=== PATIENT | male | born 1935 | race Caucasian/White ===

== ENCOUNTER 2016-07-12 14:42 | Emergency (ER) | payer MEDICARE, OTHER ==
[~2016-07-12] VITALS: Ht 170.2 cm; Wt 64.0 kg
[~2016-07-12 14:42] MED LIST: ACETAMINOPHEN PO; AMIT10TA6 PO; AMOX-366 PO; BECL8.7A6 IH; BUTA1CAP39 PO; CLOT10TR BUCCAL; DABI150C PO; DILT120T PO; GABA-502 PO; ISOMETHEPTENE PO; QVAR; SALM50DI IH; Spiriva
[2016-07-12 14:53] VITALS: BP 122/78; PULSE 94; RESP 24; O2SAT 92
[2016-07-12 15:17] LABS: BASOPHILS % (AUTO) 0.4 % (0-3); EOSINOPHILS % (AUTO) 1.7 % (0-5); MONOCYTES % (AUTO) 12.3 % (4-12); Mean Corpuscular Hemoglobin 30.7 pg (27.0-35.0); Mean Corpuscular Volume 89.7 fL (81-100); NEUTROPHILS % (AUTO) 74.8 % (40-74); Platelet Count 317 bil/L (150-400)
--- NOTE | 2016-07-12 15:25 | DRSVH ---
PROCEDURE: X-RAY CHEST ONE VIEW, PORTABLE ([id number]) INDICATIONS: sob/hx lung ca TECHNIQUE: One view of the chest was acquired. COMPARISON: [facility], CT, CT ANGIO CHEST PE, 06/24/2015, 0:02. [facility], CR, XR CHEST 1VW (PORTABLE), 06/23/2015, 19:46. FINDINGS: Surgical changes and devices: None. Lungs and pleura: No pneumothorax. Severe air space opacification within the left lower lung. Small to moderate left pleural effusion. Mediastinum: Mediastinal contours appear normal. Heart size is normal. Bones and chest wall: No suspicious bony lesions. Overlying soft tissues appear unremarkable. IMPRESSION: 1. Left mid/lower lung pleural-parenchymal opacity, consistent with recurrent carcinoma/post obstruct camilo phenomenon and/or pneumonia. Dictated by: Geovani Rosado M.D. on 07/12/2016 at 15:21 Approved by: Geovani Rosado M.D. on 07/12/2016 at 15:23
--- NOTE | 2016-07-12 15:39 | ED.REPORT ---
HPI-Abd Pain F 2 and Over Date of Service July 12, 2016 ED Provider: Dr. Bertin James The patient is a 80 year old male w/ a hx of HTNand COPD who presents to the ED via EMS due to SOB and progressive hypoxia onset 2 weeks ago. Pt describes that his breathing has been declining for the past 2 weeks since he caught a severe cold. C/o associated yellow-productive cough, lower-extremity edema, and lower back pain. Pt was diagnosed with left lung cancer last January. He is being treated at [facility] by Dr. Ryan Bermeo. Pt has been on oxygen for 3 weeks. Yesterday, he increased his oxygen from 2L to 4L as his SOB is getting increasingly worse. He has been sitting up to sleep due to difficulty breathing when laying flat. Any kind of physical exertion exacerbates his symptoms. He had a left sided pleural effusion drained earlier in the month. Pt denies fever, nausea, vomiting, and chest pain. Pt was seen at [facility] for right lung pneumonia one year ago. Pt's current up-to-date medication list: Advair 250/50 twice daily Spiriva 18 mcg once daily Gabapentin 300 mg 5 times daily Folic acid 1mg 1x/day Vit. B1 100 mg 1x/day Diltiazem 120 mg 1x/day Butalb acetamin - caff as needed Isomethepterne/apap as needed Clotrimazole 10 mg Terrance as needed Lisinipril 10 mg .... temporary hold Nursing Notes Stated Complaint: SOB Chief Complaint: Respiratory Distress Nursing Notes Reviewed: Yes Allergies: Coded Allergies: No Known Allergies (Unverified , 06/23/15) Scheduled Amitriptyline (Amitriptyline) 10 Mg Tablet 10 MG PO HS Amoxicillin/Clav K 875-125 mg (Augmentin 875-125 mg) 1 Each Tablet 1 TABLET PO BID Clotrimazole (Clotrimazole) 10 Mg Terrance 10 MG BUCCAL 5XD Dabigatran Etexilate Mesylate (Pradaxa) 150 Mg Capsule 150 MG PO BID Diltiazem ER (Cardizem LA) 120 Mg Tab.er.24h 120 MG PO DAILY Gabapentin (Gabapentin) 300 Mg Capsule 300 MG PO QID Scheduled PRN ([isometheptene/APAP ]) 2 CAPSULE PO PRN Headache Butalbital/Acetamin/Caff 50-300-40 mg (Fioricet 50-300-40 mg) 1 Each Capsule 1 CAPSULE PO Q4H PRN PRN For Pain Miscellaneous Medications ([Spiriva]) ([Qvar]) Beclomethasone Dipropionate (Qvar) 8.7 Gm Aer.w.adap 8.7 GM IH Salmeterol Xinafoate (Serevent Diskus) 50 Mcg/Puff Inhaler 1,400 MCG IH General Time Seen by MD: 15:38 Chief Complaint Other (shortness of breath) Hx Obtained from: Patient Arrived by: Ambulance Sudden in Onset?: Yes Onset Occurred: More than a week ago... (2 weeks) Symptom Duration: Since onset Location: : Back Quality: Painful Radiation: : Does not radiate Severity: Current: Mild Recent Healthcare: Recent doctor visit Similar Sx Previous: Yes Past Medical History Past Medical History HTN COPD left lung cancer Past Surgical History back surgery Smoking History Former Smoker Ambulatory Status Ambulatory Status: Independent Review of Systems Constitutional: Denies: Fever Respiratory: Reports: Prod cough, yellow, Shortness of breath, Denies: Wheezing Cardiovascular: Denies: Chest pain GI: Denies: Nausea, Vomiting Musculoskeletal: Reports: Back pain, Extremity swelling (lower extremity edema ) Complete sys rev & neg: except as marked. Physical Exam Initial Vital Signs Vital Signs (First) Date Time Temp Pulse Resp B/P Pulse Ox O2 Delivery O2 Flow Rate FiO2 07/12/16 14:53 36.7 94 24 122/78 92 Nasal Cannula 4 Initial VS: Reviewed Head / Eyes: Atraumatic, Normocephalic ENT: Mucous membranes moist, Conjunctiva normal Neck: Supple, Non-tender, Full range of motion Skin: Warm, Dry Neurologic: Alert, Oriented Psychiatric: Mood/affect normal, Behavior normal, Normal thought content General / Constitutional: Awake, Alert, Cooperative Respiratory / Chest: No wheezing poor air movement throughout no dullness to percussion breath sounds decreased more on left then right Cardiovascular: Heart rate NL, Regular rhythm, No gallop, No murmurs, No rubs Abdomen: Atraumatic, Soft, BS normoactive Back: Atraumatic Upper Extremity / MS: Atraumatic, Full range of motion, No deformity Lower Extremity / Pelvis / MS: Atraumatic, Full range of motion, No deformity Interpretation & Diagnostics Interpretation & Diagnostics: ANGIOGRAPHY CT IMPRESSION: 1. No pulmonary embolus. 2. Multiloculated moderate to large left pleural effusion. 3. Cavitary left upper lobe nodule, with surrounding airspace opacity. Differential considerations include malignancy and infection. 4. Severe emphysema. 5. Pathologic mediastinal and left hilar adenopathy, consistent with reactive lymph node enlargement versus reactive adenopathy secondary to infection. Dictated by: Geovani Rosado M.D. on 07/12/2016 at 17:24 Approved by: Geovani Rosado M.D. on 07/12/2016 at 17:29 Lab Results Interpretation Result Diagram: 07/12/16 1410 07/12/16 1410 Test 07/12/16 14:10 07/12/16 18:00 White Blood Count 9.2th/mm3 (3.8-10.1) Red Blood Count 5.15mil/mm3 (4.40-5.80) Hemoglobin 15.8g/dL (13.8-17.2) Hematocrit 46.2% (41.0-50.0) Mean Corpuscular Volume 89.7fL (81-100) Mean Corpuscular Hemoglobin 30.7pg (27.0-35.0) Mean Corpuscular Hemoglobin Concent 34.2% (32.0-37.0) Red Cell Distribution Width 13.7% (12.3-15.4) Platelet Count 317bil/L (150-400) Neutrophils (%) (Auto) 74.8% (40-74) Lymphocytes (%) (Auto) 10.5% (14-46) Monocytes (%) (Auto) 12.3% (4-12) Eosinophils (%) (Auto) 1.7% (0-5) Basophils (%) (Auto) 0.4% (0-3) Sodium Level 132mEq/L (134-144) Potassium Level 4.5mEq/L (3.5-5.2) Chloride Level 92mEq/L (97-108) Carbon Dioxide Level 26mmol/L (18-29) Blood Urea Nitrogen 16mg/dL (8-27) Creatinine 0.65mg/dL (0.76-1.27) Estimat Glomerular Filtration Rate 126mL/min (>59) Glucose Level 123mg/dL (60-99) Calcium Level 9.0mg/dL (8.5-10.1) Total Bilirubin 0.4mg/dL (0.0-1.2) Aspartate Amino Transf (AST/SGOT) 20U/L (0-50) Alanine Aminotransferase (ALT/SGPT) 20U/L (0-44) Alkaline Phosphatase 161U/L (25-160) Troponin T < 0.010ug/L (0.0-0.011) Total Protein 6.1g/dL (6.4-8.4) Albumin 3.2g/dL (3.4-5.0) Hold Urine Received (Received) Lab Results Interpretation: EK Sinus rhythm (rate 81) Abnormal R-wave progression C/W 06/27/15 X-Ray Chest Interpretation Chest Xray Interpretation: IMPRESSION: 1. Left mid/lower lung pleural-parenchymal opacity, consistent with recurrent carcinoma/post obstructive phenomenon and/or pneumonia. Dictated by: Geovani Rosado M.D. on 07/12/2016 at 15:21 Approved by: Geovani Rosado M.D. on 07/12/2016 at 15:23 View: Portable Interpretation / Wet Read by: Interpret - Radiologist Procedures Tube Thoracostomy Tube Thoracostomy: guided ultrasound placement Time: 22:15 Tube Thoracostomy by: ED physician Indication: Pneumothorax Consent / Timeout / Setup: Informed consent provided, Consent from patient, Oxygen administered, serologist applied, Hand hygiene observed, Stand sterile technique, Patient sitting up Tube Size: 6 inch Post-Procedure / Complications: Antibiotic oint applied, Occlusive dressing , No complications, Pneumothorax resolved, Condition improved, Tolerated procedure well, Patient stable Re-Eval/Medical Decision Re-Evaluation/Progress #1: Time of Eval: 17:46 Re-Evaluation/Progress Note: Pt rechecked. No pulmonary embolism noted in CT scan. Plan to consult with [facility]. Re-Evaluation/Progress #2: Time of Eval: 22:15 Re-Evaluation/Progress Note: Thoracentesis performed. 2.1L drained. Pt tolerated procedure well. Plan for chest x-ray. Re-Evaluation/Progress #3: Time of Eval: 23:28 Patient Status: Condition improved, Moderate relief Re-Evaluation/Progress Note: Pt rechecked. He is feeling much better. Breath sounds are improved. Pt informed of plan of treatment. He understands and agrees with plan. F/U and RTER warnings given. All questions addressed. Consultation : Call Returned at: 18:58 Note: Case discussed with Dr. Cordell Reza from [facility]. Plan to drain as much fluid at [facility] today. Counseled Regarding: Diagnosis, Lab results, Need for follow-up, When/why to return to ED Discharge & Departure Impression: Primary Impression: Pleural effusion on left Disposition: Home Discharge Condition All VS Reviewed: Yes Condition: Stable Additional Instructions: Emergency department evaluation tonight included interview, examination, labs and x-ray and CT scan of chest discussion with on-call oncologist for your primary oncologist. We took 2 L of fluid out of the left side of you chest. This should help you feel better for the next few days. Please contact your oncologist on Thursday for follow-up. Return to emergency department for shortness of breath, chest pain, fevers shaking chills or other new or worrisome symptoms. Thanks for trusting us with your care. Referrals: Leeann Mcdermott MD (PCP) Scribe Attestation Portion of this note were transcribed by Demi Tyson. I, , personally performed the history, physical exam, and medical decision-making: I reviewed and confirmed the accuracy for the information in the transcribed note. Signed by: julienne Mccall, 07/12/16 2200 Leeann Mcdermott MD, Donald L MD July 12, 2016 15:39 Demi Tyson July 12, 2016 15:49 Bertin James MD July 12, 2016 15:39 Demi Tyson July 12, 2016 15:49
--- NOTE | 2016-07-12 17:30 | DRSVH ---
PROCEDURE: CT ANGIO CHEST PULMONARY EMBOLISM ([id number]) INDICATIONS: dyspnea, lung cancer TECHNIQUE: After the administration of intravenous contrast, 2 mm thick sections acquired from the pulmonary api heron to the posterior costophrenic angles. 3-dimensional maximum intensity projection (MIP) coronal a nd sagittal reformats were then acquired through the thorax. For radiation dose reduction, the follo wing was used: automated exposure control, adjustment of mA and/or kV according to patient size. COMPARISON: [facility], CT, CT ANGIO CHEST PE, 06/24/2015, 0:02. FINDINGS: Image quality: Excellent. Pulmonary arteries: Pulmonary arteries are normal in size, and demonstrate no intraluminal filling d efects to suggest central pulmonary embolism. Lungs and pleura: There is moderate debris within the left mainstem bronchus, causing moderate narrow ing of the left mainstem bronchus. There is a moderate to large multiloculated left pleural effusion. No pneumothorax. Severe emphysema with apical predominance. Compressive atelectasis within the left lung. There is a cavitary mass within the left upper lobe laterally, measuring 37 mm, with moderate s urrounding airspace opacity. Mediastinum: Heart size is normal, without pericardial effusion. There is calcification of the kelsey nary vasculature. New, 15 mm short axis AP window adenopathy is present. Needle, 11 mm short axis lef t hilar adenopathy is present. 16 mm short axis left hilar adenopathy is present. Thoracic aorta is n ormal in caliber and enhancement. Esophagus is normal in caliber, without hiatal hernia. Bones and chest wall: No suspicious bony lesions. Ribs and thoracic spine appear intact throughout. Thyroid gland is within normal limits. No axillary or supraclavicular adenopathy. Abdomen: Visualized upper abdominal solid organs appear normal in the early arterial phase of enhanc ement. IMPRESSION: 1. No pulmonary embolus. 2. Multiloculated moderate to large left pleural effusion. 3. Cavitary left upper lobe nodule, with surrounding airspace opacity. Differential considerations in clude malignancy and infection. 4. Severe emphysema. 5. Pathologic mediastinal and left hilar adenopathy, consistent with reactive lymph node enlargement versus reactive adenopathy secondary to infection. Dictated by: Geovani Rosado M.D. on 07/12/2016 at 17:24 Approved by: Geovani Rosado M.D. on 07/12/2016 at 17:29
[2016-07-12 18:06] VITALS: BP 135/82; PULSE 96; RESP 20; O2SAT 94
[2016-07-12 19:35] VITALS: BP 128/72; PULSE 86; RESP 16; O2SAT 94
--- NOTE | 2016-07-13 09:55 | DRSVH ---
PROCEDURE: X-RAY CHEST ONE VIEW, PORTABLE ([id number]) INDICATIONS: post thoracentesis TECHNIQUE: One view of the chest was acquired. COMPARISON: [facility], CR, XR CHEST 1VW (PORTABLE), 07/12/2016, 15:01. [facility] CT from 07/12/2016. FINDINGS: Surgical changes and devices: None. Lungs and pleura: Emphysema. Left-sided pleural effusion is much decreased. No pneumothorax. Irregula r left apical masslike scarring. Right lung is clear. Mediastinum: Mediastinal contours appear normal. Heart size is normal. Bones and chest wall: No suspicious bony lesions. Overlying soft tissues appear unremarkable. IMPRESSION: 1. Significantly improved left-sided pleural effusion with no pneumothorax. 2. Left apical irregular masslike scarring. No change in differential considerations of malignancy or infection. 3. Emphysema. Dictated by: Jd Arroyo M.D. on 07/13/2016 at 9:51 Approved by: Jd Arroyo M.D. on 07/13/2016 at 9:53
== END 2016-07-12 23:51 | disposition home or self-care (01) ==
LOC: SED 14:42
DX: J90 Pleural effusion, not elsewhere classified (principal); I10 Essential (primary) hypertension; J44.9 Chronic obstructive pulmonary disease, unspecified; C34.92 Malignant neoplasm of unspecified part of left bronchus or lung; Z87.891 Personal history of nicotine dependence; Z99.81 Dependence on supplemental oxygen
CPT/HCPCS: 32551; 36415; 71010; 71275; 80053; 84484; 85025; 87040; 93005; 99285; Q9967

== ENCOUNTER 2016-07-15 14:43 | Emergency (ER) | payer MEDICARE, OTHER ==
[~2016-07-15] VITALS: Ht 172.7 cm; Wt 56.4 kg
[2016-07-15 14:46] VITALS: BP 95/67; PULSE 102; RESP 24; O2SAT 93
--- NOTE | 2016-07-15 15:26 | ED.REPORT ---
HPI-Dyspnea / Wheezing Date of Service July 15, 2016 ED Provider: Dr. James 80 y/o male with a hx of COPD and left lung cancer presents to the ED complaining of SOB and left lateral chest pain, onset today. He states he presented to the ED 3 days ago when they performed a Thoracentesis and drained 2.1L of fluid. He believes the fluid is building up again. The pt is on 4L nasal cannula. Nursing Notes Stated Complaint: CHEST PAIN, SHORTNESS OF BREATH Chief Complaint: Respiratory Distress Nursing Notes Reviewed: Yes Allergies: Coded Allergies: No Known Allergies (Unverified , 06/23/15) Scheduled Amitriptyline (Amitriptyline) 10 Mg Tablet 10 MG PO HS Beclomethasone Dipropionate (Qvar) 8.7 Gm Aer.w.adap 1 PUFF IH BID 40 MCG Folic Acid (Folic Acid) 0.4 Mg Tablet 0.4 MG PO QAM Gabapentin (Gabapentin) 300 Mg Capsule 300 MG PO 5XD Lisinopril / HCTZ 10-12.5 mg (Lisinopril / HCTZ 10-12.5 mg) 1 Each Tablet 1 EACH PO TWICE WEEKLY Pembrolizumab (Keytruda) 100 Mg/4 Ml (25 Mg/Ml) Vial 200 MG IV [id number] Salmeterol Xinafoate (Serevent Diskus) 50 Mcg/Puff Inhaler 1 PUFF IH DAILY Thiamine Mononitrate (Vitamin B-1) 100 Mg Tablet 100 MG PO QAM Tiotropium [place] (Spiriva) 18 Mcg Cap.w.dev 1 PUFF IH DAILY Scheduled PRN ([isometheptene/APAP ]) 2 CAPSULE PO PRN Headache COMPOUNDED Albuterol Neb Soln (Albuterol Neb Soln) 2.5 Mg/3 Ml Vial.neb 2.5 MG INHALATION Q4H PRN PRN For Shortness of Breath Butalbital/Acetamin/Caff 50-300-40 mg (Fioricet 50-300-40 mg) 1 Each Capsule 1 CAPSULE PO Q4H PRN PRN For Pain Clotrimazole (Clotrimazole) 10 Mg Terrance 10 MG BUCCAL 5XD PRN PRN THRUSH General Time Seen by MD: 15:26 Chief Complaint Shortness of breath Hx Obtained From: Patient Arrived By: Walk-in Sudden in Onset?: Yes Onset Occurred: 1 - 4 hours ago Symptom Duration: Since onset Location: : Chest left Quality: Painful Radiation: : Does not radiate Severity: Current: Mild Severity: Maximum: Mild Recent Healthcare: Recent doctor visit Similar Sx Previous: Yes Past Medical History Past Medical History Denies blood clots. Reports: COPD, Cancer (Lung) Past Surgical History Non contributory Smoking History Former Smoker Social History Alcohol Use: Denies alcohol use Drug Use: Denies drug use Other Social History: Local resident Ambulatory Status Independent Review of Systems Respiratory: Reports: Shortness of breath Complete sys rev & neg: except as marked. Physical Exam Initial Vital Signs Vital Signs (First) Date Time Temp Pulse Resp B/P Pulse Ox O2 Delivery O2 Flow Rate FiO2 07/15/16 14:46 35.9 102 24 95/67 93 Nasal Cannula 4 Initial VS: Reviewed Head / Eyes: Atraumatic, Normocephalic Extremities: Vascular intact, Neuro intact, No swelling, No tenderness Skin: Warm, Dry, No cyanosis Neurologic: Alert, Oriented, Nonfocal General/Constitutional: Awake, Alert, Cooperative Thoracostomy site from 3 days ago okay. Neck: Atraumatic, Full range of motion Respiratory / Chest: Atraumatic, No wheezing Poor air movement bilaterally, significantly decreased at left base. Cardiovascular: Heart rate NL, Regular rhythm, Heart sounds NL, No gallop, No murmurs, No rubs Back: Atraumatic, Full range of motion Interpretation & Diagnostics Lab Results Interpretation Result Diagram: 07/15/16 1605 07/15/16 1605 Test 07/15/16 16:05 White Blood Count 10.0th/mm3 (3.8-10.1) Red Blood Count 4.99mil/mm3 (4.40-5.80) Hemoglobin 15.6g/dL (13.8-17.2) Hematocrit 44.9% (41.0-50.0) Mean Corpuscular Volume 90.0fL (81-100) Mean Corpuscular Hemoglobin 31.3pg (27.0-35.0) Mean Corpuscular Hemoglobin Concent 34.7% (32.0-37.0) Red Cell Distribution Width 13.7% (12.3-15.4) Platelet Count 280bil/L (150-400) Neutrophils (%) (Auto) 77.3% (40-74) Lymphocytes (%) (Auto) 7.6% (14-46) Monocytes (%) (Auto) 12.5% (4-12) Eosinophils (%) (Auto) 1.9% (0-5) Basophils (%) (Auto) 0.2% (0-3) Sodium Level 129mEq/L (134-144) Potassium Level 4.6mEq/L (3.5-5.2) Chloride Level 90mEq/L (97-108) Carbon Dioxide Level 24mmol/L (18-29) Blood Urea Nitrogen 15mg/dL (8-27) Creatinine 0.56mg/dL (0.76-1.27) Estimat Glomerular Filtration Rate 150mL/min (>59) Glucose Level 106mg/dL (60-99) Calcium Level 8.6mg/dL (8.5-10.1) Total Bilirubin 0.4mg/dL (0.0-1.2) Aspartate Amino Transf (AST/SGOT) 21U/L (0-50) Alanine Aminotransferase (ALT/SGPT) 18U/L (0-44) Alkaline Phosphatase 158U/L (25-160) Troponin T < 0.010ug/L (0.0-0.011) Total Protein 5.9g/dL (6.4-8.4) Albumin 2.7g/dL (3.4-5.0) ECG Interpretation ECG Interpretation: Normal sinus rhythm. 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 Unchanged from previous ECG on 07/12/16. Time: 16:02 Interpreted by: ED physician X-Ray Chest Interpretation Chest Xray Interpretation: IMPRESSION: 1. Large left effusion has significantly improved with reference to the most recent comparison CT from 07/12/16. Persistent mild to moderate residual left effusion. No pneumothorax. 2. At the lateral left apex there is lung and pleural stranding/thickening that conceivably could represent evidence of malignancy but more likely is inflammatory in origin given the degree of adjacent pleural disease in that region only 3 days ago. Followup attention to that area by plain film is recommended. 3. Severe COPD. Lung base atelectasis bilaterally. Dictated by: Keo Naranjo M.D. on 07/15/2016 at 15:24 Approved by: Keo Naranjo M.D. on 07/15/2016 at 15:29 View: Portable, AP & lat Interpretation / Wet Read by: Interpret - Radiologist Re-Eval/Medical Decision Med Decision/Clinical Course 80-year-old male with dyspnea due to a rapidly reoccurring left pleural effusion and underlying lung cancer. He is not presently experiencing respiratory distress. The plan is for him to get a Pleurex catheter, I believe we have arranged for him to get one tomorrow so I will defer thoracentesis tonight. Source of Hx: Old records Re-Evaluation/Progress #1: Time of Eval: 15:30 Re-Evaluation/Progress Note: Discussed the possible need for transfer. The pt understands and agrees with the plan. All questions addressed. Re-Evaluation/Progress #2: Time of Eval: 17:55 Patient Status: Condition improved Re-Evaluation/Progress Note: Rechecked pt. Discussed lab results, imaging results, diagnosis and plan to discharge to return for the procedure tomorrow. Pt understands and agrees with plan. F/U instructions and RTER warning given. All questions addressed. Consultation #1: Referral / Consult Name: Ryan Bermeo MD Call Returned at: 16:02 Cager Operator: Agrees with eval, Agrees with plan Note: Dr. Bermeo, [facility], recommends thoracentesis. Consultation #2: Call Returned at: 16:25 Cager Operator: Will see patient, Referred to other consult Note: A staff member at [facility] requested order from an outpatient doctor and stated the procedure can be performed tomorrow. Consultation #3: Referral / Consult Name: Ryan Bermeo MD Call Returned at: 16:29 Cager Operator: Agrees with plan Note: Dr. Bermeo agrees to send the order to [facility] for tomorrow. Consultation #4: Call Returned at: 16:40 Cager Operator: Will see patient, Agrees with plan Note: [facility] informed to expect order from Dr. Bermeo. Agree with the plan to perform procedure tomorrow. Counseled Regarding: Diagnosis, Lab results, Need for follow-up, When/why to return to ED Discharge & Departure Impression: Primary Impression: Pleural effusion on left Disposition: Home Discharge Condition All VS Reviewed: Yes Additional Instructions: ED evaluation today included interview, exam and labs and chest x-ray. Case was discussed with your oncologist. The plan at this point is to have a Pleurx catheter placed with interventional radiology here at [facility] tomorrow. Do not eat or drink anything except for sips with medication and do not take ibuprofen. Tylenol is okay. You will be called in the morning with a time for the procedure. Call the emergency department at [phone] if you have not heard by 10 AM. Return to the emergency department if having increasing shortness of breath, chest pain or fevers. Continue other previous home medications. Referrals: Leeann Mcdermott MD (PCP) Scribe Attestation Portions of this note were transcribed by Vinay Graham. I, , personally performed the history, physical exam and medical decision-making;I reviewed and confirmed the accuracy of the information in the transcribed note. Signed by Veronica Fuller. 07/15/16 [id number] copies to: Leeann Mcdermott MD, Donald L MD July 15, 2016 15:26 Vinay Graham July 15, 2016 15:42
--- NOTE | 2016-07-15 15:30 | DRSVH ---
PROCEDURE: X-RAY CHEST, TWO VIEWS ([id number]) INDICATIONS: dyspnea TECHNIQUE: 2 views of the chest were acquired. COMPARISON: [facility], CT, CT ANGIO CHEST PE, 06/24/2015, 0:02. [facility], CT, CT ANGIO CHEST PE, 07/12/2016, 16:56. [facility], CR, XR CHEST 1VW (PORTABLE), 2016, 22:33. [facility], CR, XR CHEST 1VW (PORTABLE), 07/12/2016, 15:01. FINDINGS: Surgical changes and devices: None. Lungs and pleura: No right-sided pleural effusions or pneumothorax bilaterally is found and the left pleural effusion previously documented by CT scanning 07/12/16 has appreciably diminished in size, no w small to moderate in overall quantity. Lungs are abnormal with severe COPD and linear stranding at the left upper lobe and to a lesser degree the right lung base in the left lower lobe. Basilar atel ectasis is the likely cause bilaterally, but at the left apex a pleural base mass is considered possi ble but potentially simply inflammatory given the absence of any lesions suggestive of pleural or adal g parenchymal malignancy in that area 06/24/15. Mediastinum: Mediastinal contours are normal. Heart size is normal. Bones and chest wall: No suspicious bony abnormalities. Soft tissues appear unremarkable. IMPRESSION: 1. Large left effusion has significantly improved with reference to the most recent comparison CT fr om 07/12/16. Persistent mild to moderate residual left effusion. No pneumothorax. 2. At the lateral left apex there is lung and pleural stranding/thickening that conceivably could re present evidence of malignancy but more likely is inflammatory in origin given the degree of adjacent pleural disease in that region only 3 days ago. Followup attention to that area by plain film is re commended. 3. Severe COPD. Lung base atelectasis bilaterally. Dictated by: Keo Naranjo M.D. on 07/15/2016 at 15:24 Approved by: Keo Naranjo M.D. on 07/15/2016 at 15:29
[2016-07-15 16:23] LABS: BASOPHILS % (AUTO) 0.2 % (0-3); EOSINOPHILS % (AUTO) 1.9 % (0-5); MONOCYTES % (AUTO) 12.5 % (4-12); Mean Corpuscular Hemoglobin 31.3 pg (27.0-35.0); NEUTROPHILS % (AUTO) 77.3 % (40-74); Platelet Count 280 bil/L (150-400)
[2016-07-15 16:57] LABS: TROPONIN T < 0.010 ug/L (0.0-0.011)
[2016-07-15] MEDS ORDERED: TIOT18CA3 IH (17:09)
[2016-07-15] MEDS ORDERED: FOLI0.4T2 PO (17:10)
[2016-07-15] MEDS ORDERED: THIA100T64 PO (17:10)
[2016-07-15] MEDS ORDERED: LISI1TAB7 PO (17:11)
[2016-07-15] MEDS ORDERED: PEMB100V IV (17:11)
[2016-07-15] MEDS ORDERED: ALBU2.5V4 INHALATION (17:11)
[2016-07-15 18:37] VITALS: BP 116/71; PULSE 94; RESP 24; O2SAT 91
== END 2016-07-15 18:38 | disposition home or self-care (01) ==
LOC: SED 14:43
DX: J90 Pleural effusion, not elsewhere classified (principal); J44.9 Chronic obstructive pulmonary disease, unspecified; C34.92 Malignant neoplasm of unspecified part of left bronchus or lung; Z99.81 Dependence on supplemental oxygen; Z87.891 Personal history of nicotine dependence

== ENCOUNTER 2016-07-16 12:36 | Day surgery (SDC) | payer MEDICARE, OTHER ==
[~2016-07-16] VITALS: Ht 172.7 cm; Wt 57.3 kg
[~2016-07-16 12:36] MED LIST changes: +ALBU2.5V4 INHALATION; -AMOX-366 PO; -DABI150C PO; -DILT120T PO; +FOLI0.4T2 PO; +LISI1TAB7 PO; +PEMB100V IV; -QVAR; -Spiriva; +THIA100T64 PO; +TIOT18CA3 IH
[2016-07-16 13:14] VITALS: BP 110/82; PULSE 99; RESP 26; O2SAT 92
[2016-07-16] MEDS ORDERED: Heparin 10,000 Unit/1,000 mL NS Premix IV ONE (13:46)
--- NOTE | 2016-07-16 13:47 | NUR ---
ILAN Patient admitted to [facility] at 1245 for Pleurx drain placement in record label intern. at bedside. Patient denies pain but is SOB and on 3L home O2. HL placed. Labs available from ED visit 07/15/16. History and medication reviewed. Consent obtained pr . Pre-procedure teaching done and questions answered.
[2016-07-16] MEDS ORDERED: fentaNYL-PF 50 mCg/mL 2 mL Inj ONE (14:41)
[2016-07-16 15:15] VITALS: BP 119/80; PULSE 94; RESP 26; O2SAT 92
[2016-07-16 15:30] VITALS: BP 120/72; PULSE 92; RESP 26; O2SAT 94
--- NOTE | 2016-07-16 15:36 | DRSVH ---
PROCEDURE: 1. Pleurx catheter placement for left pleural effusion 2. Conscious sedation times 30 minutes. 3. Sonographic guidance for left pleural access. INDICATIONS: Lung carcinoma, recurrent left pleural effusion. COMPARISON: None. TECHNIQUE: Informed, written consent from the patient was obtained prior to the procedure. Patient wa s brought to the angiography suite, and conscious sedation was administered intravenously by jail staff, while continuous cardiorespiratory monitoring was performed. Maximal sterile barrier t echnique, hand hygiene, skin preparation, and sterile ultrasound technique was followed. A mask, ster ile gown, sterile gloves, a large sterile sheet, hand hygiene, and 2% chlorhexidine or iodine was uti lized for skin antisepsis. The left anterior chest wall prepped and draped sterilely, and the skin an d subcutaneous tissues overlying the left pleural space were infused with lidocaine. The left pleural space was accessed with an 18 gauge angiocath, through which an 035 wire was advanced. The subcutane ous tissues of the left anterior chest wall were infused with lidocaine, through which a Pleurx patricia ter was advanced. The pleurotomy access site was sequentially dilated over the 035 wire, followed by advancement of the pleurx catheter into the left pleural space. The catheter was then fastened to the skin surface. One liters of fluid were removed. FLUOROSCOPY TIME: 0.1 minutes FINDINGS: Sonographic imaging demonstrates a moderate left pleural effusion. Following Pleurx cathet er placement, the catheter is within the left pleural space. IMPRESSION: Pleurx catheter for treatment of left pleural effusion. Dictated by: Geovani Rosado M.D. on 07/16/2016 at 15:28 Approved by: Geovani Rosado M.D. on 07/16/2016 at 15:34
[2016-07-16 15:45] VITALS: BP 119/78; PULSE 90; RESP 18; O2SAT 94
[2016-07-16 16:00] VITALS: BP 118/78; PULSE 93; RESP 18; O2SAT 94
[2016-07-16 16:30] VITALS: BP 115/77; PULSE 90; RESP 18; O2SAT 94
== END 2016-07-16 23:59 | disposition home or self-care (01) ==
LOC: SPI 12:36
PROVIDERS: ATTEND Radiology Diagnostic Radiology
DX: J90 Pleural effusion, not elsewhere classified (principal); C34.92 Malignant neoplasm of unspecified part of left bronchus or lung
CPT/HCPCS: 32550; 75989; 99152; C1729; C1894; J0690; J1644; J2250; J3010

== ENCOUNTER 2016-07-17 21:54 | Emergency (ER) | payer MEDICARE, OTHER ==
[~2016-07-17] VITALS: Ht 172.7 cm; Wt 57.3 kg
[2016-07-17 22:01] VITALS: BP 127/86; PULSE 111; RESP 23; O2SAT 95
--- NOTE | 2016-07-17 22:13 | ED.REPORT ---
HPI-Chest Pain 40 and Over Date of Service Jul 17, 2016 ED Provider: Dr. Murcia 80 y/o male with a hx of reoccurring left pleural effusion, underlying lung cancer and COPD presents to the ED via EMS complaining of pain at pleural tube site after drainage today. The pt states the site has been sore since the new catheter insertion yesterday. Denies fever, increased SOB and significant weight change.The EMS administered 100mcg Fentanyl. Nursing Notes Stated Complaint: CHEST PAIN Chief Complaint: General Complaint Nursing Notes Reviewed: Yes Allergies: Coded Allergies: No Known Allergies (Unverified , 06/23/15) Scheduled Amitriptyline (Amitriptyline) 10 Mg Tablet 10 MG PO HS Beclomethasone Dipropionate (Qvar) 8.7 Gm Aer.w.adap 1 PUFF IH BID 40 MCG Folic Acid (Folic Acid) 0.4 Mg Tablet 0.4 MG PO QAM Gabapentin (Gabapentin) 300 Mg Capsule 300 MG PO 5XD Lisinopril / HCTZ 10-12.5 mg (Lisinopril / HCTZ 10-12.5 mg) 1 Each Tablet 1 EACH PO TWICE WEEKLY Pembrolizumab (Keytruda) 100 Mg/4 Ml (25 Mg/Ml) Vial 200 MG IV [id number] Salmeterol Xinafoate (Serevent Diskus) 50 Mcg/Puff Inhaler 1 PUFF IH DAILY Thiamine Mononitrate (Vitamin B-1) 100 Mg Tablet 100 MG PO QAM Tiotropium Hasty (Spiriva) 18 Mcg Cap.w.dev 1 PUFF IH DAILY Scheduled PRN ([isometheptene/APAP ]) 2 CAPSULE PO PRN Headache COMPOUNDED Albuterol Neb Soln (Albuterol Neb Soln) 2.5 Mg/3 Ml Vial.neb 2.5 MG INHALATION Q4H PRN PRN For Shortness of Breath Butalbital/Acetamin/Caff 50-300-40 mg (Fioricet 50-300-40 mg) 1 Each Capsule 1 CAPSULE PO Q4H PRN PRN For Pain Clotrimazole (Clotrimazole) 10 Mg Terrance 10 MG BUCCAL 5XD PRN PRN THRUSH General Time Seen by MD: 22:12 Chief Complaint Other (Pain at chest tube site) Hx Obtained From: Patient Arrived By: Ambulance Sudden in Onset?: Yes Onset Occurred: 1 - 4 hours ago Symptom Duration: Since onset Location: : Chest left (Pleural tube site) Quality: Painful Radiation: : Does not radiate Severity: Current: Moderate Severity: Maximum: Moderate Recent Healthcare: Recent doctor visit Similar Sx Previous: Yes Past Medical History Past Medical History Denies blood clots. Reports: COPD, Cancer (Lung) Past Surgical History Non contributory Smoking History Former Smoker Social History Alcohol Use: Denies alcohol use Drug Use: Denies drug use Other Social History: Local resident Ambulatory Status Independent Review of Systems Reports: pain at left pleural tube site. Denies: change in weight Constitutional: Denies: Fever Respiratory: Denies: Shortness of breath Complete sys rev & neg: except as marked. Physical Exam Initial Vital Signs Vital Signs (First) Date Time Temp Pulse Resp B/P Pulse Ox O2 Delivery O2 Flow Rate FiO2 07/17/16 22:01 36.6 111 23 127/86 95 Nasal Cannula 2 Initial VS: Reviewed, Vital signs normal Neck: Full range of motion Extremities: Vascular intact, Neuro intact, No swelling, No tenderness Skin: Warm, Dry, No cyanosis Neurologic: Alert, Oriented, Nonfocal General/Constitutional: Awake, Alert, Cooperative Distress / Hydration: Positive: Dehydration mild (Lips and mouth dry) Appearance / Presentation: Positive: Cachectic Respiratory / Chest: Atraumatic, No respiratory distress Decreased breath sounds at left base. There is no respiratory variation of the fluid in the tube. Drain site normal. Cardiovascular: Heart rate NL, Regular rhythm, Heart sounds NL No edema ENT: Atraumatic Mouth: Positive: Mucous membranes dry Interpretation & Diagnostics Lab Results Interpretation Result Diagram: 07/17/16225407/17/162254 Test 07/17/16 22:55 White Blood Count 11.7th/mm3 (3.8-10.1) Red Blood Count 5.13mil/mm3 (4.40-5.80) Hemoglobin 15.8g/dL (13.8-17.2) Hematocrit 46.5% (41.0-50.0) Mean Corpuscular Volume 90.6fL (81-100) Mean Corpuscular Hemoglobin 30.8pg (27.0-35.0) Mean Corpuscular Hemoglobin Concent 34.0% (32.0-37.0) Red Cell Distribution Width 13.7% (12.3-15.4) Platelet Count 328bil/L (150-400) Neutrophils (%) (Auto) 76.2% (40-74) Lymphocytes (%) (Auto) 6.9% (14-46) Monocytes (%) (Auto) 13.4% (4-12) Eosinophils (%) (Auto) 2.8% (0-5) Basophils (%) (Auto) 0.4% (0-3) Sodium Level 132mEq/L (134-144) Potassium Level 4.5mEq/L (3.5-5.2) Chloride Level 92mEq/L (97-108) Carbon Dioxide Level 25mmol/L (18-29) Blood Urea Nitrogen 19mg/dL (8-27) Creatinine 0.68mg/dL (0.76-1.27) Estimat Glomerular Filtration Rate 120mL/min (>59) Glucose Level 115mg/dL (60-99) Calcium Level 8.7mg/dL (8.5-10.1) Total Bilirubin 0.4mg/dL (0.0-1.2) Aspartate Amino Transf (AST/SGOT) 19U/L (0-50) Alanine Aminotransferase (ALT/SGPT) 17U/L (0-44) Alkaline Phosphatase 154U/L (25-160) Troponin T 0.010ug/L (0.0-0.011) Pro-B-Type Natriuretic Peptide 73.76pg/mL (0-486) Total Protein 5.6g/dL (6.4-8.4) Albumin 2.5g/dL (3.4-5.0) Lab values outside NL range: no clinical significance. Lab Results Interpretation: Very mild elevation of white blood count ECG Interpretation ECG Interpretation: Sinus Tachycardia. Rate 109. 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 No acute ST or T wave changes Time: 22:39 Interpreted by: ED physician X-Ray Chest Interpretation Chest Xray Interpretation: Result: Normal View: Portable Interpretation / Wet Read by: Wet read ED physician Re-Eval/Medical Decision Med Decision/Clinical Course 80-year-old male with pain at the insertion site of his pleural drainage tube. His chest x-ray is unremarkable with much reduced pleural effusion. Labs are unremarkable. There does not appear to be physical exam or laboratory evidence of infection. He has been discharged home with pain medication and instructions to follow-up with his primary doctor. Return to emergency room for significant worsening. Source of Hx: Old records Time of Eval: 23:37 Re-Evaluation/Progress Note: Rechecked pt. Discussed imaging results. All questions addressed. Time of Eval: 01:22 Patient Status: Condition improved Re-Evaluation/Progress Note: Discussed lab results and diagnosis. Informed the pt of the plan to discharge. Pt understands and agrees with plan. F/U instructions and RTER warning given. All questions addressed. Counseled Regarding: Diagnosis, Lab results, Need for follow-up, When/why to return to ED Discharge & Departure Primary Impression: Pleural effusion on left Disposition: Home Discharge Condition All VS Reviewed: Yes Patient Instructions: Pleural Effusion (ED) Additional Instructions: The pleural effusion is much reduced. There is no evidence of infection. I do not have an explanation for the increased pain at the insertion site, but it does not appear to be serious. Hydrocodone/APAP 5/325 (Vicodin), 1 or 2 tablets every 4-6 hours as needed for severe pain,, #10 dispensed. Contact your provider in the morning to talk to them about the continued pain at the site. Call me at [phone] between the hours of 9 PM and 6 AM for the next couple of nights if you have any questions or concerns. Referrals: Leeann Mcdermott MD (PCP) Scribe Attestation Portions of this note were transcribed by Vinay Graham. I, , personally performed the history, physical exam and medical decision-making;I reviewed and confirmed the accuracy of the information in the transcribed note. Signed by Veronica Fuller. 07/18/16 02:15 copies to: Leeann Mcdermott MD, Howard L MD Jul 17, 2016 22:13 Vinay Graham Jul 17, 2016 22:24
[2016-07-17 23:06] LABS: BASOPHILS % (AUTO) 0.4 % (0-3); EOSINOPHILS % (AUTO) 2.8 % (0-5); MONOCYTES % (AUTO) 13.4 % (4-12); Mean Corpuscular Hemoglobin 30.8 pg (27.0-35.0); Mean Corpuscular Volume 90.6 fL (81-100); NEUTROPHILS % (AUTO) 76.2 % (40-74); Platelet Count 328 bil/L (150-400)
[2016-07-17 23:32] LABS: TROPONIN T 0.01 ug/L (0.0-0.011)
[2016-07-17 23:39] VITALS: BP 127/88; PULSE 115; RESP 23; O2SAT 95
[2016-07-18] MEDS ORDERED: fentaNYL-PF 50 mCg/mL 2 mL Inj IVPUSH ONE (00:25)
[2016-07-18 00:48] VITALS: BP 112/72; PULSE 105; RESP 21; O2SAT 95
[2016-07-18] MEDS ORDERED: 0.9% Sodium Chloride 1,000 ML IV ONE (01:30)
[2016-07-18] MEDS ORDERED: _HYDROcodone/APAP 5-325 mg Tablet PO PRN (01:30)
[2016-07-18 02:46] VITALS: BP 124/91; PULSE 102; RESP 23; O2SAT 96
--- NOTE | 2016-07-18 08:26 | DRSVH ---
PROCEDURE: X-RAY CHEST ONE VIEW, PORTABLE ([id number]) INDICATIONS: increased pain, SHORTNESS OF BREATH s/p chest tube placement TECHNIQUE: One view of the chest was acquired. COMPARISON: [facility], CT, CT ANGIO CHEST PE, 07/12/2016, 16:56. [facility] , CR, XR CHEST 2VW, 07/15/2016, 15:08. [facility], CR, XR CHEST 1VW (PORTABLE), 07/12/2016 , 22:33. FINDINGS: Surgical changes and devices: There is a pleural catheter in the left base. Lungs and pleura: There is a small residual left pleural effusion decreased from the prior study wit h medial left basilar opacities consistent with compressive atelectasis or consolidation. Mild blunt ing of the right costophrenic angle is also noted suggesting a small pleural effusion. There is manas pheral consolidation in the left upper lobe which appear slightly increased. Hyperinflation of the l ungs is again noted compatible with COPD. Mediastinum: Mediastinal contours appear unchanged. Heart size is normal. Bones and chest wall: No suspicious bony lesions. Overlying soft tissues appear unremarkable. IMPRESSION: 1. New left pleural catheter with a decreased but residual small left pleural effusion. 2. Peripheral consolidation in the left upper lobe appears slightly decreased Dictated by: Collins Lora M.D. on 07/18/2016 at 8:19 Approved by: Collins Lora M.D. on 07/18/2016 at 8:24
== END 2016-07-18 02:35 | disposition home or self-care (01) ==
LOC: EDUNIT# 21:54 → EDBD 21:54 → SED 21:54
DX: J90 Pleural effusion, not elsewhere classified (principal); J44.9 Chronic obstructive pulmonary disease, unspecified; C34.90 Malignant neoplasm of unspecified part of unspecified bronchus or lung; Z87.891 Personal history of nicotine dependence
CPT/HCPCS: 36415; 71010; 80053; 83880; 84484; 85025; 93005; 96361; 96374; 99285; J3010; J7030

== ENCOUNTER 2016-09-23 00:04 | Day surgery (SDC) | payer MEDICARE, OTHER ==
[~2016-09-23] VITALS: Ht 172.7 cm; Wt 57.1 kg
[~2016-09-23 00:04] MED LIST changes: +DILT120C86 PO; +LISI10TA PO; -LISI1TAB7 PO; +TAMS0.4C98 PO
--- NOTE | 2016-09-23 10:24 | DRSVH ---
PROCEDURE: X-RAY CHEST ONE VIEW, PORTABLE ([id number]) INDICATIONS: PLEURAL EFFUSION TECHNIQUE: One view of the chest was acquired. COMPARISON: [facility], CR, XR CHEST 1VW (PORTABLE), 07/17/2016, 22:28. FINDINGS: Surgical changes and devices: Pleural drainage tube is noted overlying the left lower quadrant. Lungs and pleura: There is minimal appearance of opacity within the left base. Focus of opacity chelle ins present in the left upper lobe, unchanged. Hyperexpansion is present consistent with COPD. No vis ualized pneumothorax. Mediastinum: Mediastinal contours appear normal. Heart size is normal. Bones and chest wall: No suspicious bony lesions. Overlying soft tissues appear unremarkable. IMPRESSION: Interval placement of pleural drainage tube as above. Dictated by: Kaitlin Delatorre M.D. on 09/23/2016 at 9:17 Approved by: Kaitlin Delatorre M.D. on 09/23/2016 at 9:22
[2016-09-23 10:40] VITALS: BP 128/80; PULSE 69; RESP 16; O2SAT 96
--- NOTE | 2016-09-23 11:15 | NUR ---
Pleurex cath removed at bedside by Dr. Richelle Patel, removed without difficulty. Vaseline gauze and telfa placed. Denies any discomfort. Patient cautioned to call immediately for SOB, Chest pain, and seek medical care immediately if this occurs at/after discharge.
[2016-09-23 11:20] VITALS: BP 134/83; PULSE 75; RESP 16; O2SAT 94
[2016-09-23 11:46] VITALS: BP 111/68; PULSE 76; RESP 16; O2SAT 94
[2016-09-23 12:00] VITALS: BP 123/79; PULSE 72; RESP 16; O2SAT 95
[2016-09-23 12:15] VITALS: BP 124/79; PULSE 68; RESP 18; O2SAT 95
--- NOTE | 2016-09-23 12:32 | NUR ---
Patient has had no complaints of shortness of breath or other complaints since pleurx catheter removed.Dr Patel called, CXR post is read by her and per her patient may be discharged.
[2016-09-23 12:35] VITALS: BP 116/73; PULSE 67; RESP 18; O2SAT 95
--- NOTE | 2016-09-23 12:36 | NUR ---
Discharge instructions reviewed and patient discharged ambulatory.
--- NOTE | 2016-09-23 12:42 | DRSVH ---
PROCEDURE: X-RAY CHEST ONE VIEW, PORTABLE ([id number]) INDICATIONS: POST PROCEDURE TECHNIQUE: One view of the chest was acquired. COMPARISON: [facility], CR, XR CHEST 1VW (PORTABLE), 09/23/2016, 10:07. FINDINGS: Surgical changes and devices: There has been interval removal of previously identified pleural drain overlying the left lower lobe. Lungs and pleura: There is opacity in the right upper and left lower lobes are again noted as well CO PD changes. No pneumothorax. Mediastinum: Mediastinal contours appear normal. Heart size is normal. Bones and chest wall: No suspicious bony lesions. Overlying soft tissues appear unremarkable. IMPRESSION: Interval removal of left pleural drain. Dictated by: Kaitlin Delatorre M.D. on 09/23/2016 at 11:38 Approved by: Kaitlin Delatorre M.D. on 09/23/2016 at 11:40
[2016-09-24] MEDS ORDERED: Atropine 1 mg/10 mL (Code) Syringe ONE (14:54)
[2016-09-24] MEDS ORDERED: Methohexital 10 mg/mL 50 mL Inj ONE (14:54)
== END 2016-09-23 23:59 | disposition home or self-care (01) ==
LOC: SOUO 00:04
PROVIDERS: ATTEND Radiology Vascular & Interventional Radiology
DX: Z46.82 Encounter for fitting and adjustment of non-vascular catheter (principal); C34.32 Malignant neoplasm of lower lobe, left bronchus or lung; J91.0 Malignant pleural effusion; J43.9 Emphysema, unspecified